=== PATIENT | male | born 1960 ===

== ENCOUNTER 2018-12-17 13:25 | Emergency (ER) | payer OTHER ==
[2018-12-17 13:29] VITALS: BMI 33.9
[2018-12-17 13:31] VITALS: TEMP 98.4; O2SAT 98
--- NOTE | 2018-12-17 14:13 | C.PDOC ---
History Of Present Illness 58 year old male with PMHx of HLD, HTN, and diabetes presents to the ED complaining of right sided rib pain status post fall last night. Reports he was mopping the floor when he fell onto his right side. Denies any LOC, head injury, dizziness, weakness, numbness, abdominal pain, or any other complaints. States he took Motrin 800mg one hour [employer]EL[employer]. - HPI Time Seen by Provider: 12/17/18 13:46 Chief Complaint (Nursing): Rib Injury History Per: Patient History/Exam Limitations: no limitations Onset/Duration Of Symptoms: Hrs Location Of Injury: Right: Back (right sided rib pain ) - Fall Fall:Prior To Injury: Slipped Past Medical History Reviewed: Historical Data, Nursing Documentation, Vital Signs Vital Signs: Last Vital Signs Temp 98.4 F 12/17/18 13:29 Pulse 76 12/17/18 13:29 Resp 18 12/17/18 13:29 BP 176/74 H 12/17/18 13:29 Pulse Ox 98 12/17/18 13:29 - Medical History PMH: Diabetes, HTN, Hypercholesterolemia Surgical History: No Surg Hx - [facility] Procedures INJECT/INFUSE NEC (10/03/14) Family History: States: No Known Family Hx - Social History Hx Tobacco Use: Yes Hx Alcohol Use: Yes Hx Substance Use: No - Immunization History Hx Tetanus Toxoid Vaccination: Yes Hx Influenza Vaccination: No Hx Pneumococcal Vaccination: No Review Of Systems Constitutional: Negative for: Fever, Chills Cardiovascular: Negative for: Chest Pain Respiratory: Negative for: Shortness of Breath Gastrointestinal: Negative for: Nausea, Vomiting, Abdominal Pain, Diarrhea Genitourinary: Negative for: Dysuria, Frequency, Hematuria Musculoskeletal: Positive for: Other (right sided rib pain ) Skin: Negative for: Rash Neurological: Negative for: Weakness, Numbness, Other (LOC) Physical Exam - Physical Exam Appears: Non-toxic, No Acute Distress Skin: Warm, Dry Head: Atraumatic, Normacephalic Eye(s): bilateral: PERRL, EOMI Oral Mucosa: Moist Neck: Supple Chest: Symmetrical Cardiovascular: Rhythm Regular Respiratory: No Rales, No Rhonchi, No Wheezing Gastrointestinal/Abdominal: Soft, No Tenderness, No Guarding, No Rebound Back: No CVA Tenderness, Other (Point tenderness to right inferior ribs ) Extremity: Bilateral: Atraumatic, Normal Color And Temperature, Normal ROM Pulses: Left Dorsalis Pedis: Normal, Right Dorsalis Pedis: Normal Neurological/Psych: Oriented x3, Normal Speech Gait: Steady ED Course And Treatment O2 Sat by Pulse Oximetry: 98 (RA) Pulse Ox Interpretation: Normal Medical Decision Making Medical Decision Makin xray unremarakble pain improved clear for d/c home Disposition - Disposition Referrals: [facility] [Outside] [facility] [Outside] [facility] [Outside] Mari Bender [Staff Provider] - Disposition: HOME/ ROUTINE Disposition Time: 15:27 Additional Instructions: CORNEL SADLER, thank you for letting us take care of you today. Your provider was Hang Ramirez and you were treated for RT SIDE PAIN. The emergency medical care you received today was directed at your acute symptoms. If you were prescribed any medication, please fill it and take as directed. It may take several days for your symptoms to resolve. Return to the Emergency Department if your symptoms worsen, do not improve, or if you have any other problems. Please contact your doctor or call one of the physicians/clinics you have been referred to that are listed on the Patient Visit Information form that is included in your discharge packet. Bring any paperwork you were given at dis charge with you along with any medications you are taking to your follow up visit. Our treatment cannot replace ongoing medical care by a primary care provider outside of the emergency department. Thank you for allowing the [facility] team to be part of your care today. If you had an X-Ray or CT scan: A Radiologist will review the ED reading if any change in treatment is needed we will contact you. If you had a blood, urine, or wound culture: It will take several days for the results, if any change in treatment is needed we will contact you. If you had an STI test: It will take 48 hours for the results. Please call after 1 week if you have not heard back. Instructions: Contusion (DC), Bruised Rib (DC), Preventing Falls Forms: [facility] (Albanian) - Clinical Impression Clinical Impression: Rib contusion, Fall - Scribe Statement The provider has reviewed the documentation as recorded by the Scribe Macy Valera All medical record entries made by the Scribe were at my direction and personally dictated by me. I have reviewed the chart and agree that the record accurately reflects my personal performance of the history, physical exam, medical decision making, and the department course for this patient. I have also personally directed, reviewed, and agree with the discharge instructions and disposition.
--- NOTE | 2018-12-17 14:40 | RAD ---
Chest and right ribs four views HISTORY: Rib pain. Fall. COMPARISON: None. FINDINGS: On the frontal view, there is some questionable minimal cortical irregularity along the anterolateral aspect of the right 9th rib. This does not persist on the additional sequences and may be artifactual. No evidence of pneumothorax. Mild venous congestion. Heart size within normal limits. Atherosclerotic calcification at the aortic knob. Impression: On the frontal view, there is some questionable minimal cortical irregularity along the anterolateral aspect of the right 9th rib. This does not persist on the additional sequences and may be artifactual. No evidence of pneumothorax. Mild venous congestion. If pain persists, consider correlation with chest CT.
[2018-12-17 15:36] VITALS: BP 154/85; PULSE 78; RESP 16
== END 2018-12-17 15:35 | disposition home or self-care (01) ==
LOC: C.ER 13:25
DX: S20.211A Contusion of right front wall of thorax, initial encounter (principal); W18.30XA Fall on same level, unspecified, initial encounter; Y93.E5 Activity, floor mopping and cleaning